=== PATIENT | female | born 1995 | race American Indian/Alaskan Native ===

== ENCOUNTER 2017-11-07 21:40 | Emergency (ER) | payer OTHER ==
[2017-11-07 22:00] VITALS: BP 110/70
[2017-11-07 22:25] LABS: Basophils # (Auto) 0.1 K/mm3 (0.0-0.1); Basophils % (Auto) 0.6 % (0.0-1.8); Eosinophils % (Auto) 0.4 % (0.0-4.3); Hemoglobin 14.2 gm/dl (10.1-14.3); Lymphocytes # (Auto) 1.4 K/mm3 (1.2-5.4); Lymphocytes % (Auto) 12.3 % (13.4-35.0); Mean Corpuscular HGB Conc 34 % (30-34); Mean Corpuscular Hemoglobin 31 pg (28-32); Mean Corpuscular Volume 92 fl (79-97); Monocytes # (Auto) 0.8 K/mm3 (0.0-0.8); Monocytes % (Auto) 6.7 % (0.0-7.3); Platelet Count 208 K/mm3 (140-440); Red Blood Count 4.57 M/mm3 (3.65-5.03); Red Cell Distribution Width 13.6 % (13.2-15.2)
[2017-11-07 22:37] LABS: BUN/Creatinine Ratio 9; Blood Urea Nitrogen 7 mg/dL (7-17); Calcium 8.8 mg/dL (8.4-10.2); Hemolysis Index 0
[2017-11-08 01:43] LABS: HCG Qualitative,Urine Negative (Negative)
== END 2017-11-07 23:10 | disposition left against medical advice (07) ==
LOC: ED 21:40
DX: R07.9 Chest pain, unspecified (principal); Z53.21 Procedure and treatment not carried out due to patient leaving prior to being seen by health care provider
CPT/HCPCS: 36415; 80048; 81025; 84484; 85025; 93005; 93010